=== PATIENT | male | born 1960 | race Caucasian/White ===

== ENCOUNTER 2018-01-29 22:11 | Outpatient (CLI) ==
[2015-07-11 16:09] VITALS: BMI 33.2
== END 2018-01-29 22:12 | disposition short-term general hospital (02) ==
LOC: AMBL 22:11
PROVIDERS: ATTEND Emergency Medicine
DX: R40.4 Transient alteration of awareness (principal); R11.2 Nausea with vomiting, unspecified; E11.9 Type 2 diabetes mellitus without complications; K21.9 Gastro-esophageal reflux disease without esophagitis; R53.1 Weakness; R00.1 Bradycardia, unspecified; I10 Essential (primary) hypertension